=== PATIENT | male | born 1995 | race African-American/Black ===

== ENCOUNTER 2023-01-21 07:32 | Emergency (ER) | payer MEDICAID ==
[~2023-01-21] VITALS: Ht 172.7 cm; Wt 66.0 kg
[2023-01-21 07:41] VITALS: TEMP 98.2; O2SAT 98
[2023-01-21 08:45] VITALS: BP 110/70; PULSE 76; RESP 12
[2023-01-21] MEDS ORDERED: IBUPROFEN 600MG TABLET PO ONE (08:45)
[2023-01-21 09:03] LABS: HEMATOCRIT 45.1 % (42.0-52.0); MEAN CORPUSCULAR HEMOGLOBIN 29.3 pg (28.0-32.0); MEAN CORPUSCULAR HGB CONC 33.2 g/dL (31.0-37.0); MEAN CORPUSCULAR VOLUME 88.1 fL (80.0-94.0); PLATELET 212 x1000/uL (130-400); RED BLOOD CELL COUNT 5.12 mill/uL (4.7-6.1); RED CELL DISTRIBUTION WIDTH 13.7 % (11.6-14.6); WHITE BLOOD COUNT 8.9 x1000/uL (4.5-11.0)
[2023-01-21 09:20] LABS: CHLORIDE 108 mEq/L (98-107); INDEX HEMOLYSI 1 (1-3); INDEX ICTERIC 1 (1-4); INDEX LIPEMIC 1 (1-3); POTASSIUM 4.2 mEq/L (3.5-5.1); SODIUM 139 mEq/L (136-145)
[2023-01-21 09:29] LABS: ALANINE AMINOTRANSFERASE 13 IU/L (13-61); ALBUMIN 3.8 g/dL (3.4-5.0); ASPARTATE AMINOTRANSFERASE 14 IU/L (15-37); BILIRUBIN TOTAL 0.7 mg/dL (0.1-1.0); CALCIUM 8.6 mg/dL (8.5-10.1); CARBON DIOXIDE 28 mEq/L (21-32); CREATININE 0.8 mg/dL (0.6-1.3); GLUCOSE 92 mg/dL (70-105); PROTEIN TOTAL 7.5 g/dL (6.0-8.3); UREA NITROGEN BLOOD 12 mg/dL (7-21)
[2023-01-21] MEDS ORDERED: IBUP-2029 MT (09:42)
== END 2023-01-21 10:25 | disposition home or self-care (01) ==
LOC: EDSEX 07:54 → ER 07:54
DX: R07.89 Other chest pain (principal)
CPT/HCPCS: 36415; 71045; 80053; 85027; 93005; 99285